=== PATIENT | female | born 1985 | race Two or more races ===

== ENCOUNTER 2020-01-12 16:54 | Emergency (ER) | payer MEDICAID, OTHER ==
[~2020-01-12] VITALS: Ht 160 cm; Wt 72.0 kg
[2020-01-12] MEDS ORDERED: HYDR-3686 PO (18:02)
[2020-01-12 18:21] VITALS: BP 112/76
== END 2020-01-12 18:15 | disposition home or self-care (01) ==
LOC: ER 16:55
DX: F43.10 Post-traumatic stress disorder, unspecified (principal); H53.9 Unspecified visual disturbance; H91.90 Unspecified hearing loss, unspecified ear; Z79.899 Other long term (current) drug therapy
CPT/HCPCS: 99283

== ENCOUNTER 2020-01-14 19:07 | Emergency (ER) | payer MEDICAID ==
[~2020-01-14] VITALS: Ht 160 cm; Wt 74.2 kg
[~2020-01-14 19:07] MED LIST: HYDR-3686 PO
[2020-01-14 19:11] VITALS: BP 106/64
[2020-01-14 19:46] LABS: CLARITY,URINE CLEAR (Clear); COLOR,URINE YELLOW (Yellow); GLUCOSE, URINE NEGATIVE (Neg); KETONES,URINE NEGATIVE (Neg); LEUKOCYTE ESTERASE ,URINE NEGATIVE (Neg); NITRITES, URINE NEGATIVE (Neg); OCCULT BLOOD,URINE TRACE-INTACT (Neg); PH,URINE 5.5 (4.8-8.0); PROTEIN,URINE NEGATIVE (Neg); URINE HCG NEGATIVE (NEG); UROBILINOGEN,URINE 0.2 E.U/dL (0.2-1.0)
[2020-01-14 19:52] LABS: UA COLLECTION TYPE URINAL
[2020-01-14 19:53] LABS: BACTERIA,URINE NONE SEEN /HPF (Neg); RBC,URINE 0-2 /HPF (0-2); SQUAMOUS EPITHELIAL CELL,UR FEW /LPF (FEW); WBC,URINE 0-4 /HPF (0-4)
== END 2020-01-14 21:11 | disposition left against medical advice (07) ==
LOC: ER 19:07
DX: A64 Unspecified sexually transmitted disease (principal)
CPT/HCPCS: 81001; 81025; 99283

== ENCOUNTER 2020-01-15 01:20 | Emergency (ER) | payer MEDICAID ==
[~2020-01-15] VITALS: Ht 160 cm; Wt 68.2 kg
[2020-01-15] MEDS ORDERED: azithromycin 250mg tablet PO ONE (01:40)
[2020-01-15] MEDS ORDERED: penicillin G benzathine 1.2 million unit/2ml syringe IM ONE (01:40)
--- NOTE | 2020-01-15 01:44 | NUR ---
Pt is mildly hostile and does not want to answer questions re: c/c
[2020-01-15 02:20] VITALS: BP 118/63
== END 2020-01-15 02:21 | disposition home or self-care (01) ==
LOC: ER 01:20
DX: A64 Unspecified sexually transmitted disease (principal); R30.0 Dysuria; R10.84 Generalized abdominal pain; Z79.899 Other long term (current) drug therapy
CPT/HCPCS: 36415; 86592; 87491; 87591; 96372; 99283; J0561

== ENCOUNTER 2020-01-18 19:27 | Emergency (ER) | payer MEDICAID ==
[~2020-01-18] VITALS: Ht 165.1 cm; Wt 68.2 kg
[2020-01-18] MEDS ORDERED: ibuprofen tablet 400 MG TABLET PO ONE (20:15)
[2020-01-18] MEDS ORDERED: IBUP-1985 PO (20:25)
[2020-01-18 20:37] VITALS: BP 120/72
== END 2020-01-18 20:39 | disposition home or self-care (01) ==
LOC: ER 19:27
DX: M25.571 Pain in right ankle and joints of right foot (principal); M79.89 Other specified soft tissue disorders; Z79.899 Other long term (current) drug therapy
CPT/HCPCS: 73630; 99283